=== PATIENT | male | born 1985 | race Hispanic/Latino ===

== ENCOUNTER 2024-01-08 09:18 | Emergency (ER) | payer OTHER ==
[~2024-01-08] VITALS: Ht 175.3 cm; Wt 136.1 kg
[2024-01-08 09:37] LABS: BASOPHILS # (AUTO) 0.05 K/uL (0.00-0.20); BASOPHILS % (AUTO) 0.6 % (0.0-5.0); EOSINOPHILS # (AUTO) 0.21 K/uL (0.00-0.70); EOSINOPHILS % (AUTO) 2.4 % (0.0-8.0); HEMATOCRIT 46.5 % (42-54); IMMATURE GRANULOCYTE ABSOLUTE 0.04 K/uL (0-1); LYMPHOCYTES # (AUTO) 2.6 K/uL (1.0-4.8); LYMPHOCYTES % (AUTO) 29.8 % (21.0-51.0); MEAN CORPUSCULAR HEMOGLOBIN 27.9 pg (27.0-33.0); MEAN CORPUSCULAR HGB CONC 33.5 g/dL (32.0-36.0); MEAN CORPUSCULAR VOLUME 83.2 fL (79-99); MONOCYTES # (AUTO) 0.9 K/uL (0.1-1.0); MONOCYTES % (AUTO) 9.9 % (3.0-13.0); NEUTROPHILS % (AUTO) 56.8 % (40.0-77.0); PLATELET COUNT (AUTO) 266 K/uL (130-400); RED BLOOD CELL COUNT(AUTO) 5.59 MIL/uL (4.50-6.20); RED CELL DISTRIBUTION WIDTH 12.7 % (11.0-15.5); WHITE BLOOD COUNT (AUTO) 8.7 K/uL (4.8-10.8)
[2024-01-08] MEDS: DEXAMETHASONE SOD PHOSPHATE 4 MG/ML 1ML VIAL ONE (09:41)
[2024-01-08] MEDS: EPINEPHRINE PF 1MG (1:1,000) 1 MG/ML AMP SQ ONE (09:42)
[2024-01-08] MEDS: FAMOTIDINE 20MG VIAL IV ONE (09:42)
[2024-01-08 09:46] LABS: POTASSIUM 3.7 mmol/L (3.5-5.1)
[2024-01-08] MEDS: NITROGLYCERIN 1GM OINT 1 INCH/1GM TD ONE (09:54)
[2024-01-08] MEDS: EPINEPHRINE PF 1MG (1:1,000) 1 MG/ML AMP ONE (11:12)
[2024-01-08 11:23] VITALS: BP 135/84; PULSE 82; RESP 17; O2SAT 98
[2024-01-08] MEDS ORDERED: EPIN0.3P3 IJ (13:54)
[2024-01-08] MEDS ORDERED: METH4TAB15 PO (13:54)
[2024-01-08] MEDS ORDERED: CETI10CA5 PO (13:54)
== END 2024-01-08 14:20 | disposition home or self-care (01) ==
LOC: EDH 09:18
DX: T78.49XA Other allergy, initial encounter (principal); I10 Essential (primary) hypertension; Z98.890 Other specified postprocedural states; X58.XXXA Exposure to other specified factors, initial encounter
CPT/HCPCS: 99284; 96374; 96375; 80048; 85025; 36415; 96372; J1100; J3490; J0171